=== PATIENT | male | born 1945 | race Caucasian/White ===

== ENCOUNTER 2024-12-21 08:46 | Day surgery (SDC) | payer MEDICARE ==
--- NOTE | 2024-12-21 08:26 | P.GSHP ---
History of Present Illness H&P Date: 12/21/24 Chief Complaint: Stress urinary incontinence The patient is a 79-year-old white male who underwent a nerve sparing robotic assisted laparoscopic prostatectomy in 2010 for prostate cancer. His PSA level is 0.1. He has not received radiation therapy. He reports mixed urinary incontinence, requiring the use of 2-3 pads daily. He takes Toviaz, with some benefit. However, the stress component is predominant, and he notes increased incontinence with activity. This has persisted despite pelvic floor exercises. Urodynamic testing shows adequate bladder emptying, with no uninhibited contractions. Stress incontinence was not demonstrated. Cystoscopy shows an intact external urinary sphincter. Alternative treatment options were reviewed, and he has elected to undergo an AdVance XP male urethral sling. - Cardiovascular Cardiovascular: Reports high blood pressure - Genitourinary (Male) Genitourinary: Reports as per HPI Past Medical History Past Medical History: Cancer, Hyperlipidemia, Hypertension, Thyroid Disorder Additional Past Medical History / Comment(s): seasonal allergies. sick sinus syndrome. hx of prostate cancer. urinary leakage. History of Any Multi-Drug Resistant Organisms: None Reported Past Surgical History: Joint Replacement, Pacemaker, Prostate Surgery Additional Past Surgical History / Comment(s): removal of prostate. stepan hips and knees replaced. rt shoulder replaced. colonoscopy Past Anesthesia/Blood Transfusion Reactions: No Reported Reaction Additional Past Anesthesia/Blood Transfusion Reaction / Comment(s): no blood transfusion Type of Cardiac Device: Permanent Pacemaker Device Placement Date:: 09/2023 [facility] Smoking Status: Never smoker - Past Family History Father Family Medical History: CVA/TIA Mother Family Medical History: COPD Sister(s) Family Medical History: COPD Medications and Allergies Home Medications Medication Instructions Recorded Confirmed Type Amlodipine/Benazepril 5-10 1 tab PO DAILY 12/19/24 12/19/24 History Apixaban [Eliquis] 5 mg PO BID 12/19/24 12/19/24 History Aspirin EC [Ecotrin Low Dose] 81 mg PO DAILY 12/19/24 12/19/24 History Ezetimibe [Zetia] 10 mg PO HS 12/19/24 12/19/24 History Fesoterodine Fumarate 4 mg PO HS 12/19/24 12/19/24 History [Fesoterodine Fumarate ER] Furosemide [Lasix] 20 mg PO BID 12/19/24 12/19/24 History Levothyroxine Sodium 150 mcg PO DAILY 12/19/24 12/19/24 History Metoprolol Succinate (ER) [Toprol 50 mg PO BID 12/19/24 12/19/24 History Xl] Sotalol [Betapace] 80 mg PO BID 12/19/24 12/19/24 History Unk Multi Vitamin 1 tab PO DAILY 12/19/24 12/19/24 History Allergies Allergy/AdvReac Type Severity Reaction Status Date / Time steri strips Allergy Rash/Hives Uncoded 12/19/24 09:48 Surgical - Exam - General well developed, well nourished, no distress - Respiratory normal respiratory effort - Genitourinary normal penis with no external lesions, testicles non-tender - Psychiatric oriented to time, oriented to person, oriented to place, speech is normal, ruben ry intact Assessment and Plan (1) Stress incontinence (female) (male) Status: Acute Code(s): N39.3 - STRESS INCONTINENCE (FEMALE) (MALE) SNOMED Code(s): 79887492 Plan: The patient comes for an AdVance XP male urethral sling. The procedure has been reviewed in detail with the patient. He has been made aware of potential risks, which include anesthesia, bleeding, infection, graft erosion, lower urinary tract injury, persistent incontinence, and urinary retention.
[~2024-12-21 08:46] MED LIST: HYDROmorphone 0.5 MG/0.5 ML SYRINGE IVP PRN
[2024-12-21] MEDS: IV FLUID CONTINUATION 1,000 ML IV ONE ×2 (09:12→12:10)
[2024-12-21] MEDS: LACTATED RINGERS 1,000 ML IV SCH (09:13)
[2024-12-21] MEDS: LIDOCAINE 1% (10MG/ML) FOR IV START INTRADERMA PRN (09:13)
[2024-12-21] MEDS: ONDANSETRON 4 MG/2 ML VIAL IVP ONE (09:13)
[2024-12-21] MEDS: DEXAMETHASONE SOD PHOSPHATE 4 MG/ML 1 ML VIAL IV ONE (09:14)
[2024-12-21] MEDS: SODIUM CHLORIDE 0.9% 100 ML with GENTAMICIN 160 MG IV ONE (10:24)
[2024-12-21] MEDS: GENTAMICIN 80 MG in SODIUM CHLORIDE 0.9% 200 ML IRRIGATION ONE (10:53)
[2024-12-21] MEDS: ceFAZolin 1,000 MG in SODIUM CHLORIDE 0.9% 1,000 ML IRRIGATION ONE (10:53)
[2024-12-21] MEDS ORDERED: HYDROmorphone 1 MG/ML 1 ML SYRINGE IVP PRN (12:30)
[2024-12-21] MEDS: droPERidol 5 MG/2 ML VIAL IVP ONE (14:55)
[2024-12-21] MEDS: GENTAMICIN 160 MG in SODIUM CHLORIDE 0.9% 100 ML IVPB ONE (15:43)
[2024-12-21] MEDS: HYDROcodone/APAP 5-325MG 1 EACH TAB PO PRN (16:50)
[2024-12-21] MEDS: HEPARIN SODIUM,PORCINE 5,000 UNIT/ML 1 ML VIAL SQ SCH (16:50)
[2024-12-21] MEDS: DEXTROSE 5%-0.45% NACL 1,000 ML IV SCH (16:51)
--- NOTE | 2024-12-21 20:09 | P.OP ---
Date of Procedure: 12/21/24 Preoperative Diagnosis: Stress urinary incontinence Postoperative Diagnosis: Same Procedure(s) Performed: Placement of AdVance XP Male Urethral Sling Anesthesia: MANJULA Surgeon: Emigdio Borges Identification Clerk #1: Flaco Cruz Estimated Blood Loss (ml): 30 IV fluids (ml): 200 Pathology: none sent Condition: stable Disposition: PACU Indications for Procedure: The patient is a 79-year-old white male who underwent a nerve sparing robotic as sisted laparoscopic prostatectomy in 2010 for prostate cancer. His PSA level is 0.1. He has not received radiation therapy. He reports mixed urinary incontinence, requiring the use of 2-3 pads daily. He takes Toviaz, with some benefit. However, the stress component is predominant, and he notes increased incontinence with activity. This has persisted despite pelvic floor exercises. Urodynamic testing shows adequate bladder emptying, with no uninhibited contractions. Stress incontinence was not demonstrated. Cystoscopy shows an intact external urinary sphincter. Alternative treatment options were reviewed, and he has elected to undergo an AdVance XP male urethral sling. Operative Findings: Excellent urethral lift achieved. Description of Procedure: The patient was taken to the operating room and placed in the dorsal lithotomy position, with his legs supported in Gregorio stirrups. The external genitalia, perineum, and lower abdomen were prepped and draped sterilely. 3M dressing over a blue towel was sutured to the perineum to drape away the anus. A 16-Maltese Ricks catheter was placed. The scalpel was then used to make a midline incision extending from the posterior scrotum to the perineum. Metzenbaum scissors were used to dissect in the midline, down to the urethra. A ring retractor was used for exposure. The bulbospongiosus muscle was divided in the midline, exposing the urethra. The perineal body was sharply divided to allow proximal urethral displacement. Dissection was then continued on the lateral aspect of the urethra proximally on each side. The scalpel was used to make bilateral groin incisions 1 cm posterior to the adductor longus tendon. Subcutaneous tissues were spread with a hemostat. Each of the helical needles were passed through the respective groin incision, and turned such that the needle tips passed through the obturator foramen and wrapped around the ischiopubic ramus. The needle tips were guided digitally into the scrotal incision alongside the urethra. The AdVance XP graft was secured to the needle tips in the standard fashion. The needles were then withdrawn, and the position of the graft was adjusted such that it overlie the mid urethra, as desired. The graft was then sutured to the corpus spongiosum using 3-0 Vicryl sutures proximally and distally. The 16 Fren ch flexible cystoscope was then passed into the urethra, and the urethra was observed as the ends of the sling were tightened, attaining circumferential coaptation of the urethra. The plastic sheaths were then removed from the ends of the graft, and the ends of the graft were cut beneath the skin incisions. The groin incisions were then closed using 4-0 Vicryl sutures in a subcuticular fashion. The bulbospongiosus muscle was reapproximated using 3-0 Vicryl suture in a running fashion. The subcutaneous tissues were also reapproximated in the midline using 3-0 Vicryl suture in a running fashion. The skin was closed using 4-0 Vicryl suture in a running, subcuticular fashion. Hemostasis throughout the procedure was excellent. All sponge and needle counts were correct upon completion of the procedure. Dermabond was applied over the incisions. The Ricks catheter was replaced. The patient tolerated the procedure well was taken to the recovery room in stable condition.
[2024-12-21] MEDS: EZETIMIBE 10 MG TAB PO SCH (21:28)
[2024-12-21] MEDS: FUROSEMIDE 20 MG TAB PO SCH (21:28)
[2024-12-21] MEDS: METOPROLOL SUCCINATE (ER) 50 MG TAB.ER.24H PO SCH (21:28)
[2024-12-21] MEDS: TROSPIUM CHLORIDE 20 MG TABLET PO SCH (21:33)
[2024-12-21] MEDS: SOTALOL 80 MG TAB PO SCH (21:33)
[2024-12-22] MEDS: LEVOTHYROXINE 75 MCG TAB PO SCH (06:45)
[2024-12-22] MEDS: lisinopriL 10 MG TAB PO SCH (08:41)
[2024-12-22] MEDS: amLODIPine 5 MG TAB PO SCH (08:41)
--- NOTE | 2024-12-22 08:47 | P.DS ---
Providers Date of admission: 12/21/24 Attending physician: Emigdio Borges Primary care physician: Giancarlo Roberts DO Hospital Course: The patient underwent an advanced male sling for pilo post radical prostatectomy. He did well over night The catheter was removed this am He will be d/cd home today. He will fu with Dr Borges next week. His condition is good post op instructions have been given. Patient Condition at Discharge: Good Plan - Discharge Summary Discharge Rx Participant: Yes New Discharge Prescriptions: No Action Aspirin EC [Ecotrin Low Dose] 81 mg PO DAILY Sotalol [Betapace] 80 mg PO BID Furosemide [Lasix] 20 mg PO BID Metoprolol Succinate (ER) [Toprol Xl] 50 mg PO BID Fesoterodine Fumarate [Fesoterodine Fumarate ER] 4 mg PO HS Amlodipine/Benazepril 5-10 1 tab PO DAILY Ezetimibe [Zetia] 10 mg PO HS Apixaban [Eliquis] 5 mg PO BID Levothyroxine Sodium 150 mcg PO DAILY Unk Multi Vitamin 1 tab PO DAILY Discharge Medication List Amlodipine/Benazepril 5-10 1 tab PO DAILY 12/19/24 [History] Apixaban [Eliquis] 5 mg PO BID 12/19/24 [History] Aspirin EC [Ecotrin Low Dose] 81 mg PO DAILY 12/19/24 [History] Ezetimibe [Zetia] 10 mg PO HS 12/19/24 [History] Fesoterodine Fumarate [Fesoterodine Fumarate ER] 4 mg PO HS 12/19/24 [History] Furosemide [Lasix] 20 mg PO BID 12/19/24 [History] Levothyroxine Sodium 150 mcg PO DAILY 12/19/24 [History] Metoprolol Succinate (ER) [Toprol Xl] 50 mg PO BID 12/19/24 [History] Sotalol [Betapace] 80 mg PO BID 12/19/24 [History] Unk Multi Vitamin 1 tab PO DAILY 12/19/24 [History] Follow up Appointment(s)/Referral(s): Emigdio Borges MD [STAFF PHYSICIAN] - 1 Week Discharge Disposition: HOME SELF-CARE
[2024-12-22 14:21] VITALS: BP 108/66; PULSE 61; RESP 18; TEMP 98.1
== END 2024-12-22 16:54 | disposition home or self-care (01) ==
LOC: OR 08:46 → 4SSUR 12:01 → OR 12-22 16:54
PROVIDERS: ATTEND Urology
DX: N39.46 Mixed incontinence (principal); I49.5 Sick sinus syndrome; I10 Essential (primary) hypertension; E78.5 Hyperlipidemia, unspecified; Z79.01 Long term (current) use of anticoagulants; Z79.82 Long term (current) use of aspirin; Z79.890 Hormone replacement therapy; Z79.899 Other long term (current) drug therapy; Z95.0 Presence of cardiac pacemaker; Z90.79 Acquired absence of other genital organ(s); Z85.46 Personal history of malignant neoplasm of prostate; Z91.048 Other nonmedicinal substance allergy status
CPT/HCPCS: 53440; J1580; J1644 ×2; J1100; J0690 ×3; J2405